=== PATIENT | female | born 1965 | race Caucasian/White ===

== ENCOUNTER 2017-11-26 11:39 | Emergency (ER) | payer MEDICAID ==
[~2017-11-26] VITALS: Ht 167.6 cm; Wt 59.0 kg
[2017-11-26 11:47] VITALS: BP_SYST 113
--- NOTE | 2017-11-26 11:52 | NUR ---
Pt placed in bed 7
--- NOTE | 2017-11-26 11:54 | NUR ---
Patient c/c of sinus pain. States she has history of sinus polyps, first occurance at age 13, and again in 2005. Patient states she has followed up with Md and knows polyps have reoccurred. Patient resting comfortably in bed. Pain is manageable at this time. Will continue to follow up and monitor.
--- NOTE | 2017-11-26 11:56 | NUR ---
ER at bedside examining patient.
[2017-11-26] MEDS ORDERED: AMOXICILLIN 500 MG CAPSULE PO ONE (12:15)
[2017-11-26] MEDS ORDERED: PHENYLEPHRINE HCL 1% NASAL 15 ML NASPR NS ONE ×2 (12:15→12:30)
--- NOTE | 2017-11-26 12:54 | NUR ---
Patient self administered nasal spray, tolerated well, states foul taste after administration. Patient took PO antibiotics, tolerated well.
--- NOTE | 2017-11-26 13:22 | NUR ---
Patient given written and verbal discharge instructions and verbalizes understanding. ER MD discussed with patient the results and treatment provided. Patient in stable condition. ID arm band removed. Rx of amoxicillin given. Patient educated on pain management and to follow up with PMD. Pain Scale 0. Opportunity for questions provided and answered.
[2017-11-26 13:23] VITALS: BP_SYST 110
== END 2017-11-26 13:22 | disposition home or self-care (01) ==
LOC: SED 11:39
DX: J32.9 Chronic sinusitis, unspecified (principal); R09.81 Nasal congestion; Z88.5 Allergy status to narcotic agent; Z90.49 Acquired absence of other specified parts of digestive tract
CPT/HCPCS: 99283